=== PATIENT | female | born 1955 | race Caucasian/White ===

== ENCOUNTER 2019-06-14 08:50 | Outpatient (CLI) | payer MEDICARE, OTHER ==
[2019-06-14] MEDS ORDERED: DOXY100T PO (09:17)
[2019-06-14] MEDS ORDERED: MAGN400T9 PO (09:17)
[2019-06-14] MEDS ORDERED: CHOL10003 PO (09:17)
[2019-06-14] MEDS ORDERED: ASPI-496 PO (09:17)
[2019-06-14] MEDS ORDERED: ASCO10004 PO (09:17)
== END 2019-06-14 23:59 | disposition home or self-care (01) ==
LOC: STAR 08:50
PROVIDERS: ATTEND Internal Medicine Gastroenterology
DX: Z01.818 Encounter for other preprocedural examination (principal); I51.7 Cardiomegaly; K62.89 Other specified diseases of anus and rectum; K92.1 Melena
CPT/HCPCS: 93005

== ENCOUNTER 2019-06-21 08:17 | Day surgery (SDC) | payer MEDICARE, OTHER ==
[~2019-06-21] VITALS: Ht 172.7 cm; Wt 68.2 kg
[~2019-06-21 08:17] MED LIST: ASCO10004 PO; ASPI-496 PO; CHOL10003 PO; DOXY100T PO; MAGN400T9 PO
[2019-06-21 09:17] VITALS: BP 148/89
[2019-06-21] MEDS ORDERED: LACTATED RINGERS 1,000 ML IV SCH (09:19)
[2019-06-21] MEDS ORDERED: PROPOFOL 50 ML ONE (09:59)
[2019-06-21] MEDS ORDERED: FENTANYL PF 100 MCG/2ML IV PRN (10:30)
[2019-06-21] MEDS ORDERED: ACETAMINOPHEN 325 MG TABLET PO PRN (10:30)
[2019-06-21] MEDS ORDERED: ONDANSETRON 2MG/ML, 2ML IV PRN (10:30)
[2019-06-21] MEDS ORDERED: LABETALOL 5MG/ML, 20ML IV PRN (13:30)
== END 2019-06-21 12:35 | disposition home or self-care (01) ==
LOC: OUT 08:17
PROVIDERS: ATTEND Internal Medicine Gastroenterology
DX: K62.89 Other specified diseases of anus and rectum (principal); K64.4 Residual hemorrhoidal skin tags; K64.8 Other hemorrhoids; K57.30 Diverticulosis of large intestine without perforation or abscess without bleeding; F17.210 Nicotine dependence, cigarettes, uncomplicated; Z79.899 Other long term (current) drug therapy; Z85.828 Personal history of other malignant neoplasm of skin; Z90.49 Acquired absence of other specified parts of digestive tract; Z98.890 Other specified postprocedural states
CPT/HCPCS: 45341; J2704